=== PATIENT | female | born 1960 | race Caucasian/White ===

== ENCOUNTER → 2017-03-09 | Outpatient (CLI) | payer OTHER | LOC: RAD 01:24 | DX: N60.02 Solitary cyst of left breast (principal); N60.01 Solitary cyst of right breast ==

== ENCOUNTER → 2020-01-31 | Outpatient (CLI) | payer OTHER | LOC: ULTRA 10:12 | PROVIDERS: ATTEND Obstetrics & Gynecology | DX: N60.02 Solitary cyst of left breast (principal); N60.01 Solitary cyst of right breast; N95.1 Menopausal and female climacteric states ==

== ENCOUNTER → 2020-07-31 | Outpatient (CLI) | payer OTHER | LOC: ULTRA 09:16 | PROVIDERS: ATTEND Obstetrics & Gynecology | DX: N63.0 Unspecified lump in unspecified breast (principal); R92.8 Other abnormal and inconclusive findings on diagnostic imaging of breast ==